=== PATIENT | female | born 1995 | race Caucasian/White ===

== ENCOUNTER 2025-06-24 07:55 | Emergency (ER) | payer OTHER ==
[2025-06-24 07:58] VITALS: BP 31/81; PULSE 86; RESP 16; TEMP 37.1; O2SAT 100
== END 2025-06-24 08:41 ==
LOC: ER 08:12
DX: Z00.00 Encounter for general adult medical examination without abnormal findings (principal)
CPT/HCPCS: 36415; 80320; 99283; G0480